=== PATIENT | male | born 1960 | race Two or more races ===

== ENCOUNTER 2022-06-09 17:43 | Emergency (ER) | payer BC ==
[~2022-06-09] VITALS: Ht 180.3 cm; Wt 83.9 kg
--- NOTE | 2022-06-09 18:30 | NUR ---
C/O RIGHT FLANK PAIN SINCE THIS MORNING 9/10 SINCE THIS AM. PT STATED HE HAS HX OF KIDNEY STONES. AAOX4. OBTAINED URINE SAMPLE. ESTABLISHED IV ON RIGHT AC 18G.
--- NOTE | 2022-06-09 18:31 | NUR ---
BLOOD DRAWN AND SENT TO LAB.
[2022-06-09] MEDS: ONDANSETRON HCL/PF 4 MG/2 ML VIAL IVP ONE (19:00)
[2022-06-09] MEDS: IV NS 0.9% 1,000 ML BAG IV ONE (19:00)
[2022-06-09] MEDS: KETOROLAC TROMETHAMINE INJ 30 MG/ML VIAL IV ONE (19:00)
[2022-06-09] MEDS: MORPHINE SULFATE INJ 2 MG/ML DISP.SYRIN IV ONE (19:00)
--- NOTE | 2022-06-09 19:04 | NUR ---
PT TAKEN TO RADIOLOGY FOR CT
[2022-06-09] MEDS ORDERED: KETOROLAC TROMETHAMINE 15 MG/ML VIAL ONE (19:10)
[2022-06-09] MEDS ORDERED: MORPHINE SULFATE INJ 4 MG/ML DISP.SYRIN ONE (19:10)
[2022-06-09] MEDS ORDERED: ONDANSETRON HCL/PF 4 MG/2 ML VIAL ONE (19:10)
[2022-06-09 19:19] LABS: BILIRUBIN,URINE 1+ (NEGATIVE); COLOR,URINE YELLOW (YELLOW); LEUKOCYTE ESTERASE ,URINE NEGATIVE (NEGATIVE); NITRITE, URINE NEGATIVE (NEGATIVE); PROTEIN,URINE TRACE mg/dl (NEGATIVE); UGLUCOSE NEGATIVE (NEGATIVE)
[2022-06-09 19:22] LABS: BACTERIA,URINE Rare /HPF (None Seen); RBC,URINE 51-80 /HPF (0-2); SQUAMOUS EPITHELIAL CELL,UR None Seen /HPF (None Seen); WBC,URINE 0-2 /HPF (0-3)
--- NOTE | 2022-06-09 19:25 | NUR ---
Note julietania in EDM - 06/09/22 at 1927 by EFRAIN REPORT RECEIVED FROM LUCITA OTOOLE. PATIENT IS AAOX4. CAME INITIALLY D/T RIGHT FLANK PAIN. PT HAS HX OF KIDNEY STONES. RECEIVED WITH IV ACCESS ON RIGHT AC G18. PT IS ATTACHED TO MONITOR. VITALS CHECKED
[2022-06-09 19:32] LABS: BILIRUBIN,DIRECT 0.1 mg/dL (0.0-0.2); BILIRUBIN,TOTAL 0.3 mg/dL (0.2-1.0); CALCIUM, SERUM 8.9 mg/dL (8.5-10.1); CREATININE 1.2 mg/dL (0.6-1.3); POTASSIUM 3.8 mmol/L (3.5-5.1); TOTAL PROTEIN, SERUM 7.7 g/dL (6.4-8.2)
[2022-06-09 19:51] LABS: BASOPHILS % (AUTO) 0.3 % (0.0-2.0); EOSINOPHILS % (AUTO) 3.5 % (0.0-6.0); HEMATOCRIT 47 % (39-51); HEMOGLOBIN 16.1 g/dL (13.5-17.5); LYMPHOCYTES # (AUTO) 0.7 K/uL (0.8-4.8); LYMPHOCYTES % (AUTO) 5.8 % (20.0-44.0); MEAN CORPUSCULAR HGB CONC 34 g/dl (31.0-36.0); MEAN CORPUSCULAR VOLUME 87 fL (80-96); MONOCYTES # (AUTO) 0.1 K/uL (0.1-1.30); MONOCYTES % (AUTO) 0.9 % (2.0-12.0); NEUTROPHILS # (AUTO) 11.3 K/uL (1.8-8.9); NEUTROPHILS % (AUTO) 89.5 % (43.0-81.0); PLATELET COUNT (AUTO) 256 K/uL (150-450); RED BLOOD CELL COUNT(AUTO) 5.44 MIL/uL (4.5-6.0); WHITE BLOOD COUNT (AUTO) 12.7 K/uL (4.3-11.0)
[2022-06-09] MEDS ORDERED: TAMSULOSIN 0.4 MG CAP.SR.24H ONE (20:08)
[2022-06-09] MEDS: TAMSULOSIN 0.4 MG CAP.SR.24H PO ONE (20:11)
[2022-06-09] MEDS ORDERED: IBUP-1953 PO ×2 (20:23→20:34)
[2022-06-09] MEDS ORDERED: HYDR-3972 PO ×2 (20:23→20:34)
[2022-06-09] MEDS ORDERED: TAMS-12 PO ×2 (20:23→20:34)
--- NOTE | 2022-06-09 21:15 | NUR ---
Patient discharged to home in stable condition. Written and verbal after care instructions given. Patient verbalizes understanding of instruction.
--- NOTE | 2022-06-09 21:15 | NUR ---
IV CANNULA REMOVED
[2022-06-09 21:16] VITALS: BP 148/80
== END 2022-06-09 21:17 | disposition home or self-care (01) ==
LOC: ER 17:49
DX: N13.2 Hydronephrosis with renal and ureteral calculous obstruction (principal); I10 Essential (primary) hypertension; Z88.0 Allergy status to penicillin; Z87.442 Personal history of urinary calculi
CPT/HCPCS: 99284; 74176; 96374; 96361; 96375 ×2; 85025; 80048; 83690; 80076; 81001; 36415; J2270; J2405; J1885